=== PATIENT | female | born 1965 | race African-American/Black ===

== ENCOUNTER 2023-09-07 04:37 | Day surgery (SDC) | payer OTHER ==
[2023-09-04 08:40] VITALS: BMI 41.0
[2023-09-07 09:12] VITALS: TEMP 97.6
[2023-09-07 09:56] VITALS: RESP 18
[2023-09-07 09:59] VITALS: BP 113/56; PULSE 60
== END 2023-09-07 10:05 | disposition home or self-care (01) ==
LOC: JASU-ENDO 04:37
PROVIDERS: ATTEND Internal Medicine Gastroenterology
PROC: 0DBL8ZX Excision of Transverse Colon, Via Natural or Artificial Opening Endoscopic, Diagnostic (ICD-10-PCS; 2023-09-07)
PROC: 3E0H8KZ Introduction of Other Diagnostic Substance into Lower GI, Via Natural or Artificial Opening Endoscopic (ICD-10-PCS; 2023-09-07)
PROC: 0DBH8ZX Excision of Cecum, Via Natural or Artificial Opening Endoscopic, Diagnostic (ICD-10-PCS; principal; 2023-09-07 08:30)
DX: Z12.11 Encounter for screening for malignant neoplasm of colon (principal); D12.0 Benign neoplasm of cecum; D12.3 Benign neoplasm of transverse colon; K64.8 Other hemorrhoids; E11.9 Type 2 diabetes mellitus without complications
CPT/HCPCS: 82962; 88305-TC

== ENCOUNTER 2024-01-04 13:23 | Emergency (ER) | payer OTHER ==
[2024-01-04 14:01] VITALS: BP 144/82; PULSE 85; RESP 20; TEMP 98.1; BMI 38.2
== END 2024-01-04 15:59 | disposition home or self-care (01) ==
LOC: JERFT 13:23
DX: R05.3 Chronic cough (principal); R32 Unspecified urinary incontinence; R21 Rash and other nonspecific skin eruption
CPT/HCPCS: 71046-TC-FY; 99283-25